=== PATIENT | female | born 1975 | race Caucasian/White ===

== ENCOUNTER 2020-10-03 07:19 | Day surgery (SDC) | payer BC, OTHER ==
[~2020-10-03 07:19] MED LIST: Lactated Ringers 1,000 ML IV SCH; Lidocaine 2% 5 ML SDV ONE; Midazolam 1 MG/ML 2 ML SDV ONE; Ondansetron 4 MG/2 ML SDV ONE; Sodium Chloride 0.9% 10 ML SDV IV PRN; Sodium Chloride 0.9% 10 ML Syringe FLUSH PRN; Sodium Chloride 0.9% 2.5 ML Syringe FLUSH PRN; propofoL 50 ML ONE
--- NOTE | 2020-10-03 08:01 | PCM.PREANE ---
Preanesthetic Assessment - Anesthesia/Transfusion/Family Hx Anesthesia History: Prior Anesthesia Without Reaction Transfusion History: No Prior Transfusion(s) - Review of Systems General: No Symptoms Pulmonary: No Symptoms Cardiovascular: No Symptoms Gastrointestinal: No Symptoms Neurological: No Symptoms Other: Reports: None - Physical Assessment NPO Status Date: 10/03/20 NPO Status Time: 00:00 Vital Signs: Last Vital Signs Temp 97.7 F 10/03/20 07:44 Pulse 71 10/03/20 07:44 Resp 15 10/03/20 07:44 BP 105/67 10/03/20 07:44 Pulse Ox 100 10/03/20 07:44 Height: 5 ft 5 in Weight: 183 lb ASA Class: 3 Mental Status: Alert & Oriented x3 Dentition: Reports: Normal Dentition Thyro-Mental Finger Breadths: 3 Mouth Opening Finger Breadths: 3 ROM/Head Extension: Full Lungs: Clear to Auscultation, Normal Respiratory Effort Cardiovascular: Regular Rate, Regular Rhythm - Lab Values: Laboratory Last Values Urine HCG, Qual NEGATIVE (NEGATIVE) 10/03/20 07:35 - Allergies Allergies/Adverse Reactions: Allergies Allergy/AdvReac Type Severity Reaction Status Date / Time codeine Allergy Nausea and Verified 09/27/20 10:43 Vomiting meperidine [From Demerol] Allergy Nausea and Verified 09/27/20 10:43 Vomiting morphine Allergy Nausea and Verified 09/27/20 10:43 Vomiting - Acknowledgements Anesthesia Type Planned: General Anesthesia Pt an Appropriate Candidate for the Planned Anesthesia: Yes Alternatives and Risks of Anesthesia Discussed w Pt/Guardian: Yes Pt/Guardian Understands and Agrees with Anesthesia Plan: Yes PreAnesthesia Questionnaire HEENT History: Reports: Other (See Below) Other HEENT History: wears glasses Cardiovascular History: Reports: None Respiratory History: Reports: None Gastrointestinal History: Reports: Chronic Constipation Genitourinary History: Reports: None Musculoskeletal History: Reports: None Neurological History: Reports: None Psychiatric History: Reports: Anxiety, Depression Endocrine/Metabolic History: Reports: Hypothyroidism Other Endocrine/Metabolic History: hx thyroid cancer Hematologic History: Reports: None Immunologic History: Reports: None Oncologic (Cancer) History: Reports: Malignant Melanoma, Thyroid Other Dermatologic History: malignant melanoma to scalp - Past Surgical History Head Surgeries/Procedures: Reports: None HEENT Surgical History: Reports: None Cardiovascular Surgical History: Reports: None Respiratory Surgical History: Reports: None GI Surgical History: Reports: Cholecystectomy Female Surgical History: Reports: Other (See Below) Other Female Surgeries/Procedures: hysteroscopy Endocrine Surgical History: Reports: Other (See Below) Other Endocrine Surgeries/Procedures: thyroid bx Neurological Surgical History: Reports: None Musculoskeletal Surgical History: Reports: Arthroscopic Knee Other Musculoskeletal Surgeries/Procedures:: ACL repair right knee Oncologic Surgical History: Reports: Other (See Below) Other Oncologic Surgeries/Procedures: excision of scalp lesion, skin transplantation, thyroid bx Dermatological Surgical History: Reports: Skin Biopsy, Skin Graft - SUBSTANCE USE Tobacco Use Status *Q: Light Tobacco User Tobacco Use Within Last Twelve Months: Vaping - HOME MEDS Home Medications: Home Meds Cholecalciferol (Vitamin D3) [Vitamin D3] 1 tab PO DAILY 09/16/20 [History] Docusate Sodium [Colace Clear] 50 mg PO BID PRN 09/16/20 [History] Lactulose 30 ml PO BID PRN 09/16/20 [History] Levothyroxine 112 mcg PO DAILY 09/16/20 [History] Magnesium Oxide [Magnesium] 1 tab PO DAILY 09/16/20 [History] Multivitamin 1 tab PO DAILY 09/16/20 [History] Zinc 25 mg PO DAILY 09/16/20 [History] polyethylene glycoL 3350 [MiraLAX] 1 dose PO DAILY 09/16/20 [History] Doxycycline Hyclate 100 mg PO BID 09/27/20 [History] - CURRENT (IN HOUSE) MEDS Current Meds: Current Medications Lactated Ringer's (Ringers, Lactated) 1,000 mls @ 125 mls/hr IV ASDIRECTED CRIS Sodium Chloride (Sodium Chloride 0.9% 10 Ml Syringe) 10 ml FLUSH ASDIRECTED PRN PRN Reason: Keep Vein Open Sodium Chloride (Sodium Chloride 0.9% 2.5 Ml Syringe) 2.5 ml FLUSH ASDIRECTED PRN PRN Reason: Keep Vein Open Sodium Chloride (Sodium Chloride 0.9% 10 Ml Syringe) 10 ml FLUSH ASDIRECTED PRN PRN Reason: Keep Vein Open Sodium Chloride (Sodium Chloride 0.9% 2.5 Ml Syringe) 2.5 ml FLUSH ASDIRECTED PRN PRN Reason: Keep Vein Open Sodium Chloride (Sodium Chloride 0.9% 10 Ml Sdv) 10 ml IV ASDIRECTED PRN PRN Reason: IV Use Discontinued Medications Propofol (Diprivan 50 Ml) Confirm Administered Dose 50 mls @ as directed .ROUTE .STK-MED ONE Stop: 10/03/20 07:03 Lidocaine (Lidocaine 2% 5 Ml Sdv) Confirm Administered Dose 5 ml .ROUTE .STK-MED ONE Stop: 10/03/20 06:59 Midazolam HCl (Midazolam 1 Mg/Ml 2 Ml Sdv) Confirm Administered Dose 2 mg .ROUTE .STK-MED ONE Stop: 10/03/20 07:15 Ondansetron HCl (Ondansetron 4 Mg/2 Ml Sdv) Confirm Administered Dose 4 mg .ROUTE .STK-MED ONE Stop: 10/03/20 06:59
--- NOTE | 2020-10-03 09:56 | PCM.POSTAN ---
POST ANESTHESIA ASSESSMENT - MENTAL STATUS Mental Status: Alert, Oriented - VITAL SIGNS Vital Signs: Last Vital Signs Temp 97.7 F 10/03/20 07:44 Pulse 71 10/03/20 07:44 Resp 15 10/03/20 07:44 BP 105/67 10/03/20 07:44 Pulse Ox 100 10/03/20 07:44 - RESPIRATORY Respiratory Status: Respiratory Rate WNL, Airway Patent, O2 Saturation Stable - CARDIOVASCULAR CV Status: Pulse Rate WNL, Blood Pressure Stable - GASTROINTESTINAL GI Status: No Symptoms - POST OP HYDRATION Hydration Status: Adequate & Stable
--- NOTE | 2020-10-03 09:57 | PCM48HPAN ---
Post Anesthesia Note - EVALUATION WITHIN 48HRS OF ANESTHETIC Vital Signs in Normal Range: Yes Patient Participated in Evaluation: Yes Respiratory Function Stable: Yes Airway Patent: Yes Cardiovascular Function Stable: Yes Hydration Status Stable: Yes Pain Control Satisfactory: Yes Nausea and Vomiting Control Satisfactory: Yes Mental Status Recovered: Yes Vital Signs: Last Vital Signs Temp 97.7 F 10/03/20 07:44 Pulse 71 10/03/20 07:44 Resp 15 10/03/20 07:44 BP 105/67 10/03/20 07:44 Pulse Ox 100 10/03/20 07:44
--- NOTE | 2020-10-03 10:33 | PCM.OPNOTE ---
- General Post-Op/Procedure Note Date of Surgery/Procedure: 10/03/20 Operative Procedure(s): Diagnostic colonoscopy Findings: cecal, ascending, transverse x 2, sigmoid colon polyps. Biopsy @ ascending, transverse and sigmoid colon Pre Op Diagnosis: Change in bowel habits, family history of colon polyps Post-Op Diagnosis: cecal, ascending, transverse x 2, sigmoid colon polyps Anesthesia Technique: MAC Primary Surgeon: Crissy Fleming Condition: Good Free Text/Narrative:: Intake & Output 10/02/20 10/03/20 10/03/20 22:59 06:59 14:59 Intake Total 650 Balance 650
--- NOTE | 2020-10-04 12:46 | OR ---
SURGEON: CRISSY FLEMING MD DATE OF PROCEDURE: 10/03/2020 PREOPERATIVE DIAGNOSIS: Change in bowel habits, family history of colon polyps. POSTOPERATIVE DIAGNOSES: 1. Cecal polyp x1. 2. Ascending colon polyp x1. 3. Transverse colon polyps x2. 4. Sigmoid colon polyp x1. PROCEDURES PERFORMED: Diagnostic colonoscopy and polypectomy. PRIMARY SURGEON: Crissy Fleming MD ANESTHESIA: MAC. INSTRUMENT USED: Olympus colonoscope. EXTENT OF EXAM: To the cecum. PREPARATION: Good. LIMITATIONS: None. INDICATIONS FOR EXAMINATION: The patient is a 44-year-old female who presented to my clinic with changes in her bowel habits. She has a history of early colon polyps in her family. The decision was made to proceed with diagnostic colonoscopy. The patient and I discussed the procedure, expected perioperative course, and the risks. She verbalized understanding and wishes to proceed. PROCEDURE IN DETAIL: The patient was brought in to the endoscopy suite and placed in the left lateral decubitus position. A time-out was completed verifying the patient's name, age, date of , allergies, and procedure to be performed. Monitored anesthesia care was induced and continuous oxygen was provided via nasal cannula throughout the procedure. After adequate sedation was achieved, a digital rectal exam was performed. This exam was within normal limits. A well-lubricated colonoscope was inserted in the rectum and advanced under direct visualization to the level of the cecum. The cecum was identified by both visual and anatomic landmarks. A photograph was taken of the cecal cap; however, I was unable to retroflex the scope within the cecum due to looping of the scope more proximally. The scope was then fully withdrawn while examining the color, texture, anatomy, and integrity of the mucosa from the cecum to the anal canal. Random biopsies were taken of the ascending, transverse, and sigmoid colon and sent for histologic review. She was found to have polyps. There was one in the cecum, one in the ascending colon, two in the transverse colon, and one in the sigmoid colon. The transverse colon polyp #2 was larger and removed in piecemeal fashion using a cold biopsy forceps. It was at 90 cm. The remainder were small and sessile, removed using a cold biopsy forceps as well. Otherwise, the colonic mucosa appeared normal. The scope was brought into the rectum and retroflexed to allow visualization of the anal canal opening. This appeared normal and a photograph was taken. The scope was then straightened out and fully withdrawn. The cecum to anus time was 30 minutes. The patient tolerated the procedure well and was transferred to the PACU in stable condition. ENDOSCOPIC DIAGNOSES: 1. Cecal polyp x1. 2. Ascending colon polyp x1. 3. Transverse colon polyps x2. 4. Sigmoid colon polyp x1. RECOMMENDATION: Follow up in clinic in two weeks. SUSANNA MORATAYA /[id number]
== END 2020-10-03 10:20 | disposition home or self-care (01) ==
LOC: MW.SDS 07:19
PROVIDERS: ATTEND Surgery
DX: D12.0 Benign neoplasm of cecum (principal); D12.2 Benign neoplasm of ascending colon; D12.3 Benign neoplasm of transverse colon; Z88.6 Allergy status to analgesic agent; Z79.890 Hormone replacement therapy; Z79.899 Other long term (current) drug therapy; Z80.0 Family history of malignant neoplasm of digestive organs; Z83.71 Family history of colonic polyps
CPT/HCPCS: 45380; 81025; J2250; J2405; J2704; J7120; 00811; 88305

== ENCOUNTER 2022-02-03 06:40 | Day surgery (SDC) | payer BC ==
[~2022-02-03 06:40] MED LIST changes: -Lidocaine 2% 5 ML SDV ONE; -Midazolam 1 MG/ML 2 ML SDV ONE; -Ondansetron 4 MG/2 ML SDV ONE; -Sodium Chloride 0.9% 10 ML SDV IV PRN; -Sodium Chloride 0.9% 10 ML Syringe FLUSH PRN; -Sodium Chloride 0.9% 2.5 ML Syringe FLUSH PRN; -propofoL 50 ML ONE
[2022-02-03] MEDS ORDERED: Scopolamine 1.5 MG Transdermal Patch TOP ONE (07:00)
[2022-02-03] MEDS ORDERED: Dexmedetomidine 200 MCG/2 ML SDV ONE (07:25)
[2022-02-03] MEDS ORDERED: Propofol 200 MG/20 ML SDV ONE (07:26)
[2022-02-03] MEDS ORDERED: Rocuronium Bromide 50 MG/5 ML Syringe ONE ×2 (07:26→09:03)
[2022-02-03] MEDS ORDERED: Lidocaine 2% 5 ML SDV ONE (07:26)
[2022-02-03] MEDS ORDERED: Magnesium Sulfate (4.06 MEQ/ML) 5 GM/10 ML SDV ONE (07:26)
[2022-02-03] MEDS ORDERED: fentaNYL 100 MCG/2 ML SDV ONE ×3 (07:26→09:23)
[2022-02-03] MEDS ORDERED: Water For Injection, Sterile 20 ML ONE (07:28)
[2022-02-03] MEDS ORDERED: Methylene Blue 50 MG/10 ML Ampule ONE (07:44)
[2022-02-03] MEDS ORDERED: Bupivacaine 0.25% 30 ML SDV ONE (07:44)
[2022-02-03] MEDS ORDERED: Fluorescein 5 ML Vial ONE (07:44)
[2022-02-03] MEDS ORDERED: fentaNYL 50 MCG/ML SDV IVPUSH PRN (08:02)
[2022-02-03] MEDS ORDERED: Morphine 2 MG/ML SYRINGE IVPUSH PRN (08:02)
[2022-02-03] MEDS ORDERED: Naloxone 0.4 MG/ML SDV IVPUSH PRN (08:02)
[2022-02-03] MEDS ORDERED: Ondansetron 4 MG/2 ML SDV IVPUSH PRN ×2 (08:02→11:08)
[2022-02-03] MEDS ORDERED: Albuterol 0.083% 2.5 MG/3 ML Neb Soln NEB PRN (08:02)
[2022-02-03] MEDS ORDERED: Metoclopramide 10 MG/2 ML SDV IVPUSH PRN (08:02)
[2022-02-03] MEDS ORDERED: ceFAZolin 2 GM Vial ONE (08:20)
[2022-02-03] MEDS ORDERED: Dexamethasone 4 MG/ML 5 ML MDV ONE (08:33)
[2022-02-03] MEDS ORDERED: propofoL 100 ML ONE (08:37)
[2022-02-03] MEDS ORDERED: Furosemide 40 MG/4 ML VIAL ONE (09:36)
[2022-02-03] MEDS ORDERED: Sugammadex Sodium 200 MG/2 ML VIAL ONE (09:47)
[2022-02-03] MEDS ORDERED: Ketorolac 30 MG/ML SDV ONE (09:47)
[2022-02-03] MEDS ORDERED: Ondansetron 4 MG/2 ML SDV ONE (09:47)
[2022-02-03] MEDS: HYDROmorphone 1 MG/ML Syringe IVPUSH PRN ×4 (10:58→11:35)
[2022-02-03] MEDS ORDERED: Acetaminophen/oxyCODONE 325-5 MG Tab PO PRN (11:08)
[2022-02-03] MEDS ORDERED: Morphine 4 MG/ML Syringe IVPUSH PRN (11:08)
[2022-02-03] MEDS: Acetaminophen/oxyCODONE 325-5 MG Tab PO PRN ×2 (12:28→18:47)
[2022-02-03] MEDS: Ketorolac 30 MG/ML SDV IVPUSH PRN ×2 (16:38→22:48)
[2022-02-03] MEDS ORDERED: ALPRAZolam 0.5 MG Tab PO PRN (16:39)
[2022-02-04] MEDS: Acetaminophen/oxyCODONE 325-5 MG Tab PO PRN ×2 (02:21→09:28)
[2022-02-04] MEDS: Ketorolac 30 MG/ML SDV IVPUSH PRN (04:35)
[2022-02-04 07:45] LABS: CARBON DIOXIDE,CO2 26.1 mmol/L (21.0-32.0); POTASSIUM,K 3.9 mmol/L (3.5-5.1)
== END 2022-02-04 09:45 | disposition home or self-care (01) ==
LOC: MW.SDS 06:40 → MW.OB 14:16 → MW.SDS 02-04 09:45
PROVIDERS: ATTEND Obstetrics & Gynecology
DX: N80.03 Adenomyosis of the uterus (principal); N83.8 Other noninflammatory disorders of ovary, fallopian tube and broad ligament; N80.9 Endometriosis, unspecified; F17.290 Nicotine dependence, other tobacco product, uncomplicated; Z79.899 Other long term (current) drug therapy; Z86.16 Personal history of COVID-19; Z90.49 Acquired absence of other specified parts of digestive tract; Z98.890 Other specified postprocedural states; Z88.8 Allergy status to other drugs, medicaments and biological substances
CPT/HCPCS: 36415; 58552; 80053; 85025; 86850; 86900; 86901; A9270; J0131; J0690; J1100; J1170; J1885; J1940; J2405; J2704; J3010; J3475; J3490; J7030; J7120; 00944

== ENCOUNTER 2023-02-10 10:17 | Inpatient (IN) | payer BC ==
[2023-02-10] MEDS ORDERED: Ondansetron 4 MG/2 ML SDV IVPUSH ONE (10:30)
[2023-02-10] MEDS ORDERED: Morphine 4 MG/ML Syringe IVPUSH ONE (10:30)
[2023-02-10] MEDS ORDERED: Sodium Chloride 0.9% 1,000 ML IV ONE (10:30)
[2023-02-10 10:56] LABS: BASOPHILS ABSOLUTE AUTO 0.05 K/uL (0.00-0.20); BASOPHILS PERCENT AUTO 0.5 % (0.0-1.0); EOSINOPHILS ABSOLUTE AUTO 0.15 K/uL (0.00-0.45); EOSINOPHILS PERCENT AUTO 1.4 % (0.0-6.0); HEMATOCRIT 36.4 % (37.0-47.0); HEMOGLOBIN 12.7 g/dL (12.0-16.0); IMMATURE GRAN ABSOLUTE AUTO 0.03 K/uL (0.00-0.05); IMMATURE GRAN PERCENT AUTO 0.3 % (0.0-0.4); LYMPHOCYTES ABSOLUTE AUTO 2.13 K/uL (1.00-4.80); LYMPHOCYTES PERCENT AUTO 20.4 % (24.0-44.0); MEAN CORPUSCULAR HEMOGLOBIN 30.8 pg (28.0-32.0); MEAN CORPUSCULAR HGB CONC 34.9 g/dL (32.0-36.0); MEAN CORPUSCULAR VOLUME 88.3 fL (83.0-99.0); MEAN PLATELET VOLUME 9.8 fL (9.4-12.3); MONOCYTES ABSOLUTE AUTO 0.67 K/uL (0.00-0.80); MONOCYTES PERCENT AUTO 6.4 % (0.0-8.0); NEUTROPHILS ABSOLUTE AUTO 7.43 K/uL (1.80-7.70); PLATELET COUNT,PLT 225 K/uL (150-400); RED BLOOD CELL COUNT 4.12 M/uL (4.10-5.30); WHITE BLOOD CELL COUNT,WBC 10.46 K/uL (3.9-11.3)
[2023-02-10 11:17] LABS: A/G RATIO 0.9 (0.9-1.6); ALBUMIN 3.5 g/dL (3.4-5.0); BILIRUBIN TOTAL 0.4 mg/dL (0.2-1.0); CALCIUM 8.7 mg/dL (8.5-10.1); CARBON DIOXIDE,CO2 26.8 mmol/L (21.0-32.0); CREATININE 0.8 mg/dL (0.6-1.0); EST CRCL DRUG DOSING (CG) 75.88 mL/min; PROTEIN TOTAL,TP 7.2 g/dL (6.4-8.2)
[2023-02-10 11:21] LABS: LACTIC ACID 0.8 mmol/L (0.4-2.0)
[2023-02-10] MEDS ORDERED: Iopamidol 755 MG/ML 500 ML Multipack Bottle IVPUSH STA (11:44)
[2023-02-10] MEDS ORDERED: Piperacillin/Tazobactam 3.375 GM in Sodium Chloride 0.9% 100 ML IV ONE (12:18)
[2023-02-10 12:38] LABS: APPEARANCE,URINE CLEAR; BILIRUBIN,URINE NEGATIVE (NEGATIVE); COLOR,URINE YELLOW; GLUCOSE,URINE NEGATIVE (NEGATIVE); KETONES,URINE NEGATIVE (NEGATIVE); LEUKOCYTE ESTERASE,URINE NEGATIVE (NEGATIVE); NITRITE,URINE NEGATIVE (NEGATIVE); OCCULT BLOOD,URINE NEGATIVE (NEGATIVE); PROTEIN,URINE NEGATIVE (NEGATIVE); UROBILINOGEN,URINE 0.2 EU/dL (<2.0)
[2023-02-10] MEDS ORDERED: HYDROmorphone 1 MG/ML Syringe IVPUSH ONE (13:19)
[2023-02-10] MEDS ORDERED: oxyCODONE 5 MG Tab PO PRN (14:47)
[2023-02-10] MEDS ORDERED: Polyethylene Glycol 3350 Powder 17 GM Packet PO PRN (14:50)
[2023-02-10] MEDS ORDERED: Ondansetron 4 MG/2 ML SDV IVPUSH PRN (14:50)
[2023-02-10] MEDS ORDERED: Sodium Chloride 0.9% 10 ML Syringe FLUSH PRN (14:50)
[2023-02-10] MEDS ORDERED: Sodium Chloride 0.9% 2.5 ML Syringe FLUSH PRN (14:50)
[2023-02-10] MEDS ORDERED: Naloxone 0.4 MG/ML SDV IVPUSH PRN (14:50)
[2023-02-10] MEDS: Enoxaparin 40 MG/0.4 ML Syringe SUBCUT SCH (16:14)
[2023-02-10] MEDS ORDERED: diphenhydrAMINE 50 MG/ML SDV IVPUSH PRN (17:52)
[2023-02-10] MEDS: Morphine 2 MG/ML SYRINGE IVPUSH PRN (18:05)
[2023-02-10] MEDS: Piperacillin/Tazobactam 3.375 GM in Sodium Chloride 0.9% 100 ML IV SCH (18:12)
[2023-02-11] MEDS: Piperacillin/Tazobactam 3.375 GM in Sodium Chloride 0.9% 100 ML IV SCH ×4 (00:24→17:59)
[2023-02-11] MEDS: Morphine 2 MG/ML SYRINGE IVPUSH PRN (00:25)
[2023-02-11] MEDS: Acetaminophen 325 MG Tab PO PRN ×4 (04:42→20:55)
[2023-02-11 06:14] LABS: BASOPHILS ABSOLUTE AUTO 0.04 K/uL (0.00-0.20); BASOPHILS PERCENT AUTO 0.6 % (0.0-1.0); EOSINOPHILS ABSOLUTE AUTO 0.25 K/uL (0.00-0.45); EOSINOPHILS PERCENT AUTO 3.6 % (0.0-6.0); HEMATOCRIT 33.4 % (37.0-47.0); HEMOGLOBIN 11.2 g/dL (12.0-16.0); IMMATURE GRAN ABSOLUTE AUTO 0.02 K/uL (0.00-0.05); IMMATURE GRAN PERCENT AUTO 0.3 % (0.0-0.4); LYMPHOCYTES ABSOLUTE AUTO 2.01 K/uL (1.00-4.80); LYMPHOCYTES PERCENT AUTO 28.7 % (24.0-44.0); MEAN CORPUSCULAR HEMOGLOBIN 29.9 pg (28.0-32.0); MEAN CORPUSCULAR HGB CONC 33.5 g/dL (32.0-36.0); MEAN CORPUSCULAR VOLUME 89.1 fL (83.0-99.0); MONOCYTES ABSOLUTE AUTO 0.56 K/uL (0.00-0.80); NEUTROPHILS ABSOLUTE AUTO 4.12 K/uL (1.80-7.70); NEUTROPHILS PERCENT AUTO 58.8 % (41.0-71.0); PLATELET COUNT,PLT 204 K/uL (150-400); RED BLOOD CELL COUNT 3.75 M/uL (4.10-5.30)
[2023-02-11 06:30] LABS: CARBON DIOXIDE,CO2 27.3 mmol/L (21.0-32.0); CREATININE 0.8 mg/dL (0.6-1.0); EST CRCL DRUG DOSING (CG) 75.88 mL/min; MAGNESIUM 1.7 mg/dL (1.8-2.4); POTASSIUM,K 3.8 mmol/L (3.5-5.1)
[2023-02-11] MEDS ORDERED: Magnesium Sulfate/Water 2 GM in Premix Bag 1 BAG IV ONE (07:54)
[2023-02-11] MEDS: Levothyroxine 112 MCG Tab PO SCH (08:57)
[2023-02-11] MEDS: DULoxetine 60 MG Cap PO SCH ×2 (08:57→20:48)
[2023-02-11] MEDS: Docusate Sodium 100 MG Cap PO SCH (08:57)
[2023-02-11] MEDS: Enoxaparin 40 MG/0.4 ML Syringe SUBCUT SCH (15:54)
[2023-02-12] MEDS: Piperacillin/Tazobactam 3.375 GM in Sodium Chloride 0.9% 100 ML IV SCH ×3 (00:01→12:23)
[2023-02-12] MEDS: Levothyroxine 112 MCG Tab PO SCH (07:00)
[2023-02-12 07:04] LABS: BASOPHILS ABSOLUTE AUTO 0.05 K/uL (0.00-0.20); BASOPHILS PERCENT AUTO 1.2 % (0.0-1.0); EOSINOPHILS ABSOLUTE AUTO 0.18 K/uL (0.00-0.45); EOSINOPHILS PERCENT AUTO 4.1 % (0.0-6.0); HEMATOCRIT 33.3 % (37.0-47.0); HEMOGLOBIN 11.3 g/dL (12.0-16.0); IMMATURE GRAN ABSOLUTE AUTO 0.01 K/uL (0.00-0.05); IMMATURE GRAN PERCENT AUTO 0.2 % (0.0-0.4); LYMPHOCYTES ABSOLUTE AUTO 1.24 K/uL (1.00-4.80); LYMPHOCYTES PERCENT AUTO 28.6 % (24.0-44.0); MEAN CORPUSCULAR HEMOGLOBIN 30.1 pg (28.0-32.0); MEAN CORPUSCULAR HGB CONC 33.9 g/dL (32.0-36.0); MEAN CORPUSCULAR VOLUME 88.6 fL (83.0-99.0); MONOCYTES ABSOLUTE AUTO 0.41 K/uL (0.00-0.80); MONOCYTES PERCENT AUTO 9.4 % (0.0-8.0); NEUTROPHILS ABSOLUTE AUTO 2.45 K/uL (1.80-7.70); NEUTROPHILS PERCENT AUTO 56.5 % (41.0-71.0); PLATELET COUNT,PLT 199 K/uL (150-400); RED BLOOD CELL COUNT 3.76 M/uL (4.10-5.30); WHITE BLOOD CELL COUNT,WBC 4.34 K/uL (3.9-11.3)
[2023-02-12 07:26] LABS: CALCIUM 8.2 mg/dL (8.5-10.1); CARBON DIOXIDE,CO2 27.4 mmol/L (21.0-32.0); CREATININE 0.8 mg/dL (0.6-1.0); EST CRCL DRUG DOSING (CG) 75.88 mL/min; MAGNESIUM 1.7 mg/dL (1.8-2.4); POTASSIUM,K 4.1 mmol/L (3.5-5.1)
[2023-02-12] MEDS ORDERED: Magnesium Sulfate/Water 2 GM in Premix Bag 1 BAG IV ONE (07:29)
[2023-02-12] MEDS: Docusate Sodium 100 MG Cap PO SCH (08:11)
[2023-02-12] MEDS: DULoxetine 60 MG Cap PO SCH (08:11)
== END 2023-02-12 13:09 | disposition home or self-care (01) | DRG 383 ==
LOC: MW.ED 10:17 → MW.MS 14:45
PROVIDERS: ADMIT Family Medicine; ATTEND Family Medicine
DX: L03.317 Cellulitis of buttock (principal); F41.9 Anxiety disorder, unspecified; K76.89 Other specified diseases of liver; E03.9 Hypothyroidism, unspecified; K59.09 Other constipation; F32.A Depression, unspecified; Z85.820 Personal history of malignant melanoma of skin; Z79.899 Other long term (current) drug therapy; Z88.8 Allergy status to other drugs, medicaments and biological substances; Z85.850 Personal history of malignant neoplasm of thyroid; Z90.49 Acquired absence of other specified parts of digestive tract; Z98.890 Other specified postprocedural states; Z79.890 Hormone replacement therapy
CPT/HCPCS: 36415; 74177; 74177-26; 80048; 80053; 80202; 81003; 83605; 83735; 85025; 87040; 87070; 87205; 96361; 96365; 96375; 99284; 99284-25; A9270-GY; J1170; J1650; J2270; J2405; J2543; J3370; J3475; J3490; J7030; J7050; Q9967

== ENCOUNTER 2023-09-25 11:37 | Emergency (ER) | payer BC | END 2023-09-25 12:25 | disposition left against medical advice (07) | LOC: MW.ED 11:37 | DX: Z53.21 Procedure and treatment not carried out due to patient leaving prior to being seen by health care provider (principal) ==

== ENCOUNTER 2023-10-26 10:50 | Day surgery (SDC) | payer BC ==
[~2023-10-26 10:50] MED LIST changes: -Lactated Ringers 1,000 ML IV SCH; +Sodium Chloride 0.9% 10 ML Syringe FLUSH PRN; +Sodium Chloride 0.9% 2.5 ML Syringe FLUSH PRN; +Sodium Chloride 0.9% 20 ML SDV IV PRN
[2023-10-26] MEDS: Lactated Ringers 1,000 ML IV SCH (11:50)
[2023-10-26] MEDS: Hydrocortisone Sodium Succinate 100 MG/2 ML SDV IV ONE (12:02)
[2023-10-26] MEDS ORDERED: Magnesium Sulfate (4.06 MEQ/ML) 5 GM/10 ML SDV ONE (12:19)
[2023-10-26] MEDS ORDERED: propofoL 50 ML ONE (12:24)
[2023-10-26] MEDS ORDERED: fentaNYL 100 MCG/2 ML SDV ONE (12:36)
[2023-10-26] MEDS ORDERED: ePHEDrine 50 MG/ML SDV ONE (12:51)
[2023-10-26] MEDS ORDERED: Propofol 200 MG/20 ML SDV ONE (12:55)
== END 2023-10-26 14:05 | disposition home or self-care (01) ==
LOC: MW.SDS 10:50
PROVIDERS: ATTEND Surgery
DX: Z12.11 Encounter for screening for malignant neoplasm of colon (principal); D12.3 Benign neoplasm of transverse colon; Z86.010 Personal history of colon polyps; F32.A Depression, unspecified; E03.9 Hypothyroidism, unspecified; F41.9 Anxiety disorder, unspecified; F17.290 Nicotine dependence, other tobacco product, uncomplicated; Z79.890 Hormone replacement therapy; Z79.899 Other long term (current) drug therapy; Z88.5 Allergy status to narcotic agent
CPT/HCPCS: 45380; J0131; J1720; J2704; J3010; J3475; J7120; 00811; J3490